=== PATIENT | male | born 1955 | race Two or more races ===

== ENCOUNTER 2019-11-13 06:31 | Day surgery (SDC) | payer OTHER ==
[~2019-11-13 06:31] MED LIST: GLUMETZA500 MG PO; LIPITOR40 M1 PO; PROAIR; SYNTHROID100 MCG PO
== END 2019-11-13 11:20 | disposition home or self-care (01) ==
LOC: CIR.AMB 06:31
PROVIDERS: ATTEND Surgery Surgery of the Hand
DX: M67.844 Other specified disorders of tendon, left hand (principal); Z20.828 Contact with and (suspected) exposure to other viral communicable diseases